=== PATIENT | female | born 1980 | race Asian ===

== ENCOUNTER 2017-03-11 00:20 | Inpatient (IN) | payer SELFPAY ==
[~2017-03-11] VITALS: Ht 168 cm; Wt 89.4 kg
[~2017-03-11 00:20] MED LIST: IBUP-974 PO
[2017-03-11] MEDS ORDERED: IBUPROFEN 800 MG TAB PO PRN (01:20)
[2017-03-11] MEDS ORDERED: CARBOPROST 250 MCG/ML AMP IM PRN (01:20)
[2017-03-11] MEDS ORDERED: MISOPROSTOL 25 MCG TAB VG PRN (01:20)
[2017-03-11] MEDS ORDERED: OXYTOCIN 20 UNITS in LACTATED RINGERS 1,000 ML IV SCH (01:20)
[2017-03-11] MEDS ORDERED: METHYLERGONOVINE 0.2 MG/ML AMP IM PRN ×2 (01:20→16:50)
[2017-03-11] MEDS ORDERED: PROMETHAZINE 25 MG/ML VIAL IVP PRN (01:20)
[2017-03-11] MEDS ORDERED: NALBUPHINE HYDROCHLORIDE 10 MG/ML VIAL IVP PRN (01:20)
[2017-03-11] MEDS ORDERED: OXYTOCIN 10 UNITS/ML VIAL IM ONE (01:20)
[2017-03-11] MEDS: LACTATED RINGERS 1,000 ML IV SCH ×4 (01:50→14:48)
[2017-03-11 02:01] LABS: BASOPHILS # (AUTO) 0.1 K/uL (0.00-0.22); BASOPHILS % (AUTO) 0.5 % (0.0-2.0); EOSINOPHILS # (AUTO) 0.3 K/uL (0-0.4); EOSINOPHILS % (AUTO) 2.6 % (0.0-4.0); HEMATOCRIT 33.5 % (36-48); HEMOGLOBIN 11.3 g/dL (12.0-16.0); LYMPHOCYTES # (AUTO) 2.7 K/uL (2.5-16.5); LYMPHOCYTES % (AUTO) 25.7 % (20.5-51.1); MEAN CORPUSCULAR HEMOGLOBIN 27 pg (27-31); MEAN CORPUSCULAR HGB CONC 34 g/dL (33-37); MEAN CORPUSCULAR VOLUME 81 fL (80-94); MONOCYTES # (AUTO) 0.9 K/uL (0.8-1.0); MONOCYTES % (AUTO) 8.8 % (1.7-9.3); NEUTROPHILS # (AUTO) 6.4 K/uL (1.8-7.7); NEUTROPHILS % (AUTO) 62.4 % (42.2-75.2); PLATELET COUNT (AUTO) 323 K/uL (140-450); RED BLOOD CELL COUNT(AUTO) 4.14 MIL/uL (4.20-5.40); WHITE BLOOD COUNT (AUTO) 10.4 K/uL (4.8-10.8)
[2017-03-11 02:05] LABS: APPEARANCE,URINE HAZY (CLEAR); BILIRUBIN,URINE NEGATIVE (NEGATIVE); BLOOD, URINE TRACE-I (NEGATIVE); COLOR,URINE YELLOW (YELLOW); LEUKOCYTE ESTERASE ,URINE 3+ (NEGATIVE); NITRITE, URINE NEGATIVE (NEGATIVE); PH,URINE 6.5 (5.0-9.0); UGLUCOSE NEGATIVE (NEGATIVE)
[2017-03-11] MEDS ORDERED: MISOPROSTOL 25 MCG TAB ONE (02:05)
[2017-03-11 02:14] LABS: RBC,URINE 0-5 (RARE) /HPF (0-5); WBC,URINE 20-60 /HPF (0-5)
[2017-03-11 02:15] LABS: CALCIUM OXALATE CRYSTALS,UR 0-10 /HPF (None Seen)
[2017-03-11] MEDS ORDERED: ROPIVACAINE 0.2%/NS PREMIX 250 ML EPI ONE (06:33)
[2017-03-11] MEDS ORDERED: OXYTOCIN 20 UNITS/LR PREMIX 1,000 ML IV ONE (08:13)
--- NOTE | 2017-03-11 08:54 | NUR ---
PATIENT HAS BEEN SCREENED AND CATEGORIZED LOW NUTRITION RISK. PATIENT WILL BE SEEN WITHIN 7 DAYS OF ADMISSION. 03/18/17 ANANTH STEVE MBA, RD
[2017-03-11] MEDS ORDERED: AMPICILLIN 2,000 MG in NACL 0.9% 100 ML IV SCH (14:40)
[2017-03-11] MEDS ORDERED: AMPICILLIN 2,000 MG VIAL ONE (14:50)
[2017-03-11] MEDS ORDERED: MEASLES, MUMPS, AND RUBELLA 1 VIAL SQVAC PRN (16:50)
[2017-03-11] MEDS ORDERED: TEMAZEPAM 15 MG CAP PO PRN (16:50)
[2017-03-11] MEDS ORDERED: OXYTOCIN 10 UNITS/ML VIAL IM PRN (16:50)
[2017-03-11] MEDS ORDERED: HYDROcodone/APAP 5/325 MG 1 TAB TAB PO PRN (16:50)
[2017-03-11] MEDS ORDERED: BENZOCAINE/MENTHOL 20%-0.5% 60 GM CAN TP PRN (16:50)
[2017-03-11] MEDS ORDERED: OXYTOCIN 10 UNITS/ML VIAL ONE (18:38)
[2017-03-11] MEDS ORDERED: AMPICILLIN 1,000 MG in NACL 0.9% 50 ML IV SCH ×4 (19:00)
[2017-03-11 20:27] LABS: RAPID PLASMA REAGIN NON-REACTIVE (Non Reactiv)
[2017-03-11] MEDS ORDERED: DOCUSATE SOD/SENNA 50/8.6 MG 1 TAB PO SCH (21:00)
[2017-03-11] MEDS: IBUPROFEN 800 MG TAB PO PRN (21:23)
[2017-03-12] MEDS: IBUPROFEN 800 MG TAB PO PRN ×2 (06:35→17:08)
[2017-03-12] MEDS ORDERED: INFLUENZA VIRUS VACCINE QUAD 0.5 ML SYR IMVAC SCH (08:00)
[2017-03-12 08:02] LABS: HEMOGLOBIN 10.3 g/dL (12.0-16.0)
[2017-03-12] MEDS: oxyCODONE/APAP 5/325 MG 1 TAB TAB PO PRN ×2 (08:50→21:07)
== END 2017-03-13 15:00 | disposition home or self-care (01) | DRG 775 ==
LOC: MLD 00:20 → MFCC 21:00
PROVIDERS: ADMIT Obstetrics & Gynecology; ATTEND Obstetrics & Gynecology
PROC: 10E0XZZ Delivery of Products of Conception, External Approach (ICD-10-PCS; principal; 2017-03-11)
PROC: 10907ZC Drainage of Amniotic Fluid, Therapeutic from Products of Conception, Via Natural or Artificial Opening (ICD-10-PCS; 2017-03-11)
PROC: 3E0P7VZ Introduction of Hormone into Female Reproductive, Via Natural or Artificial Opening (ICD-10-PCS; 2017-03-11)
PROC: 0HQ9XZZ Repair Perineum Skin, External Approach (ICD-10-PCS; 2017-03-11)
PROC: 00HU33Z Insertion of Infusion Device into Spinal Canal, Percutaneous Approach (ICD-10-PCS; 2017-03-11)
PROC: 3E0R3BZ Introduction of Anesthetic Agent into Spinal Canal, Percutaneous Approach (ICD-10-PCS; 2017-03-11)
PROC: 3E0234Z Introduction of Serum, Toxoid and Vaccine into Muscle, Percutaneous Approach (ICD-10-PCS; 2017-03-12)
PROC: 3E0234Z Introduction of Serum, Toxoid and Vaccine into Muscle, Percutaneous Approach (ICD-10-PCS; 2017-03-12)
DX: O70.0 First degree perineal laceration during delivery (principal); Z23 Encounter for immunization; Z37.0 Single live birth; Z3A.38 38 weeks gestation of pregnancy
CPT/HCPCS: 36415; 81001; 85018; 85025; 86592; 86886; 86900; 86901; 87086; 90658; 90715; J0290; J2590; J2795; J7120